=== PATIENT | female | born 1960 | race Caucasian/White ===

== ENCOUNTER → 2020-03-05 11:46 | Outpatient (CLI) | payer OTHER, MEDICAID, SELFPAY ==
--- NOTE | 2020-03-05 11:52 | DI.US.S_ITS ---
PROCEDURE: US ABDOMEN COMPLETE INDICATIONS: ABNORMAL FINDINGS BLOOD CHEMISTRY/DYSPHAGIA TECHNIQUE: Real-time scanning was performed of the abdominal and retroperitoneal organs, with image documentation. COMPARISON: None. FINDINGS: Liver: Liver is diffusely increased in echogenicity. No focal hepatic abnormalities identified. Normal hepatic size. Gallbladder: No gallstones identified. Normal gallbladder wall. No pericholecystic fluid. Negative sonographic Tapia sign. Biliary ducts: Intrahepatic bile ducts are non-dilated. Extrahepatic bile duct caliber measures 3.7 mm. Normal is 6-7 mm or less in diameter, or 10 mm or less post-cholecystectomy. Pancreas: Visualized portions of the pancreas are sonographically normal. Spleen: Spleen is normal in size and homogeneous in echotexture. Kidneys: Kidneys are normal in size and echotexture. Right kidney measures 11.4 cm long; left kidney measures 10.9 cm long. No hydronephrosis or nephrolithiasis. No solid masses. Aorta: Visualized aorta is normal in caliber at less than 3 cm. Iliacs: Proximal common iliac arteries are normal in caliber at less than 2.5 cm. IVC: Intrahepatic inferior vena cava is patent. Miscellaneous: No free abdominal fluid. IMPRESSION: Increased hepatic echogenicity noted possibly related to hepatic steatosis but other sources of hepatocellular disease cannot be excluded. Recommend clinical correlation. Dictated by: Tony SURESH Interpreted: Lisa Bruce MD on 03/05/2020 at 13:00 Transcribed by: SABAS on 03/05/2020 at 14:48 Approved by: Lisa Bruce M.D. on 03/05/2020 at 15:05
--- NOTE | 2020-03-05 11:53 | DI.RAD.S_ITS ---
PROCEDURE: FL BARIUM SWALLOW INDICATIONS: abnormal findings of blood chemistry Dysphagia COMPARISON: None. FINDINGS: Function: There is normal esophageal peristalsis. There was [id number] episodic elicited gastroesophageal reflux. Morphology: Air-contrast images demonstrate normal mucosal morphology. Single contrast views show no esophageal strictures, extrinsic mass effects, or diverticula. There is a small sliding hiatal hernia at the gastroesophageal junction. Limited images of the stomach demonstrate normal appearance. IMPRESSION: Ktia-[id number] episodic gastroesophageal reflux was elicited. Dictated by: Filemon Delgado M.D. on 03/05/2020 at 14:18 Approved by: Filemon Delgado M.D. on 03/05/2020 at 14:19
== END ==
PROVIDERS: PCP Family Medicine; Referring Provider Family Medicine; Visit Provider Family Medicine
DX: R13.10 Dysphagia, unspecified (principal); R79.89 Other specified abnormal findings of blood chemistry; K21.9 Gastro-esophageal reflux disease without esophagitis; K44.9 Diaphragmatic hernia without obstruction or gangrene
CPT/HCPCS: 74220; 76700

== ENCOUNTER 2020-09-09 13:23 | Emergency (ER) | payer OTHER, MEDICAID, SELFPAY ==
[2020-09-09] VITALS (7 sets, daily range): BP systolic 131–169; BP diastolic 66–74; PULSE 86–111; RESP 19–24; TEMP 36.9; O2SAT 96–100; BMI 28.7
--- NOTE | 2020-09-09 13:46 | DI.CT.S_ITS ---
PROCEDURE: CT HEAD/BRAIN WO CON INDICATIONS: dizzy and BARRY TECHNIQUE: Noncontrast 4.5 mm thick angled axial sections acquired from the foramen magnum to the vertex, with coronal and sagittal reformats. For radiation dose reduction, the following was used: automated exposure control, adjustment of mA and/or kV according to patient size. COMPARISON: None. FINDINGS: Image quality: Excellent. CSF spaces: Basal cisterns are patent. No extra-axial fluid collections. The ventricles are symmetric in size and shape. Brain: No intracranial bleeds or masses. There is cerebral volume loss for age, with resultant ventricular and sulcal prominence. There are periventricular and deep white matter chronic small vessel ischemic changes. There is intracranial internal carotid artery atherosclerosis. Skull and face: Calvarium and visualized facial bones appear intact, without suspicious lesions. Sinuses: Visualized sinuses and mastoids are clear. IMPRESSION: No acute intracranial process. Dictated by: Leonard Foote M.D. on 09/09/2020 at 13:58 Approved by: Leonard Foote M.D. on 09/09/2020 at 14:01
[2020-09-09 14:05] LABS: Prothrombin Time 11.3 SECONDS (10.1-12.7)
[2020-09-09 14:08] LABS: PTT Partial Thromboplastin Tim 32 SECONDS (26.4-36.2)
[2020-09-09 14:10] LABS: Alanine Aminotransferase 26 IU/L (<35); Albumin 4.3 g/dL (3.5-5.0); Albumin Globulin Ratio 1.4 (1.0-2.8); Alkaline Phosphatase 66 U/L (38-126); Aspartate Aminotransferase 29 IU/L (14-36); BUN Creatinine Ratio 21.3 (6-22); Bilirubin Total 0.4 mg/dL (0.2-1.3); Blood Urea Nitrogen 13 mg/dL (7-17); Calcium 9.9 mg/dL (8.4-10.2); Carbon Dioxide 29 mmol/L (22-32); Chloride 105 mmol/L (98-107); Creatine Kinase 39 U/L (30-135); Estimated Glomerular Filt Rate > 60.0 mL/min (>60); Glucose 181 mg/dL (70-100); HEMOLYSIS < 15 (0-50); Potassium 4.2 mmol/L (3.4-5.1); Sodium 140 mmol/L (137-145); Total Protein 7.3 g/dL (6.3-8.2)
--- NOTE | 2020-09-09 14:11 | ED.HA ---
HPI - Headache General Chief Complaint: Headache Stated Complaint: numbness/tingling all over, headache x 2 day Time Seen by Provider: 09/09/20 13:52 Source: patient Mode of arrival: Ambulatory Limitations: no limitations History of Present Illness HPI Narrative: This is a 60-year-old female comes emergency department with complaint of numbness and tingling that she describes typically on the right cheek, teeth and face. She states also sometimes in her right arm is also sometimes in her left arm or consistently on her right. She also sometimes gets it in both lower extremities. She describes as being bilateral. Patient has recently been having episodes of feeling lightheaded but with no syncope. She has not had any speech issues. She denies any current shortness of breath chest pain today she has some shortness of breath with exertion when carrying her groceries up the steps. She denies any current nausea or vomiting. No major issues with bowel movements or urination today. She has not appreciated any weakness or difficulty with movement. She has not had complete loss of sensation. She denies any issues with speech. She also notes she has been having some headaches which have been more persistent and over the last several days she has had ringing in her ears which has been intermittent in the past but has become more constant over the last day and more intense. She presents today because she has had increasing frequency, intensity and persistence of symptoms. Patient states she was positive for COVID in December, she tested negative afterwards and she noticed her symptoms starting on March or April. She does have diabetes, she is on metformin and glipizide as well as famotidine, Wellbutrin and ibesartan. Patient has a history of hiatal hernia which she states causes her to eat smaller meals which has prompted her to lose weight and her glucose has been more well controlled over the last 2 months typically her fastings have been 108-150 and prior they were closer to 200. She had a 1985 denies any other surgeries. She quit tobacco in the past. More rare alcohol, no illicit. She follows with Dr. Kern in [place], [place]. Related Data Allergies Allergy/AdvReac Type Severity Reaction Status Date / Time No Known Drug Allergies Allergy Verified 09/09/20 13:36 Review of Systems Review of Systems ROS Unobtainable: All systems reviewed & are unremarkable except as noted in HPI and below Patient History Medical History (Updated 09/09/20 @ 14:45 by Pippa Tay DO) Diabetes GERD (gastroesophageal reflux disease) Hiatal hernia Hypertension Surgical History (Updated 09/09/20 @ 14:39 by Pippa Tay DO) History of Social History Smoking Status: Former smoker Smoking Status: Former smoker alcohol intake frequency: holidays/special occasions only Substance Use Type: does not use Exam Narrative Exam Narrative: GEN: well nourished, well appearing female, alert and oriented x 3, patient appears to be in mild distress. HEENT: Atraumatic, pupils are equal round reactive to light, extraocular movements are intact, nares are clear, TMs are clear with no fluid, TMs are retracted but with good light reflex bilaterally, there is no conjunctival pallor. Throat is clear without any exudates, erythema, tonsillar enlargement or uvular deviation, no facial droop. HEART: Regular rate and rhythm without murmur, clicks, rubs. Pulses are equal in upper and lower extremities LUNGS:Lungs clear to auscultation, no wheezes, rales, crackles, chest moves symmetrically ABD:bowel sounds normal, soft, non-tender, no guarding, rebound, rigidity, no masses noted, no hepatosplenomegaly :No CVA tenderness MSCL: Non-tender, no muscle atrophy, muscles strength 5/5 upper and lower extremities, full range of motion, normal gait NEURO:CN 2-12 intact, sensation normal, reflexes 2/4 upper and lower extremities. finger nose finger test normal, heel hahn test normal SKIN: Rash, erythema or other skin changes noted. Initial Vital Signs Initial Vital Signs: Vital Signs Temperature 98.4 F 09/09/20 13:30 Pulse Rate 111 H 09/09/20 13:30 Respiratory Rate 24 09/09/20 13:30 Blood Pressure 169/71 H 09/09/20 13:30 Pulse Oximetry 100 09/09/20 13:30 Scores GCS [place] coma scale eye opening: Spontaneous [place] coma scale verbal response: Orientated [place] coma scale motor response: Obey commands Yudy coma scale total score: 15 NIH Stroke Scale Level of Conciousness: Alert, keenly responsive Ask month/age: Answers both questions correctly. Open/close eyes, close hand: Performs both tasks correctly Best gaze horizontal: Normal Visual [place]: No visual loss Facial palsy: Normal symetrical movement Left arm drift: No drift for full 10 sec Right arm drift: No drift for full 10 sec Left leg drift: No drift for full 5 sec Right leg drift: No drift for full 5 sec Limb ataxia: Absent Sensory on face/arms/legs: Normal, no sensory loss Best language: No aphasia, normal Dysarthria: Normal Extinction or inattention: No abnormality Total NIH Stroke scale score: 0 Course Orders Ordered: ED Orders 09/09/20 13:40 EKG-12 Lead Stat 09/09/20 13:43 Complete Blood Count AUTO DIFF Stat Comprehensive Metabolic Panel Stat Partial Thromboplastin Time Stat Prothrombin Time INR Stat Troponin & CK Cardiac Panel Stat 09/09/20 13:46 CT head/brain wo con Stat 09/09/20 14:42 Urine Culture Stat Urine Microscopic Stat Vital Signs Vital signs: Vital Signs - 8 hr 09/09/20 13:30 09/09/20 13:31 09/09/20 13:33 Temperature 98.4 F Pulse Rate 111 H 98 H Respiratory Rate 24 Blood Pressure 169/71 H 169/71 H Pulse Oximetry 100 97 99 09/09/20 13:55 09/09/20 14:36 09/09/20 14:37 Temperature Pulse Rate 89 91 H 86 Respiratory Rate 20 19 Blood Pressure 158/74 H 133/69 Pulse Oximetry 99 96 98 09/09/20 15:00 Temperature Pulse Rate 96 H Respiratory Rate Blood Pressure 131/66 Pulse Oximetry 97 MDM - Headache Lab Data Result diagrams: 09/09/20 13:43 09/09/20 13:43 Labs: Lab Results 09/09/20 09/09/20 09/09/20 Range/Units 13:43 13:43 13:43 WBC 9.4 (4.5-11.0) X10^3/uL RBC 4.79 (4.0-5.2) X10^6/uL Hgb 13.0 (12.0-16.0) g/dL Hct 40.2 (36-46) % MCV 83.9 (80-100) fL MCH 27.1 (26-34) PG MCHC 32.3 (30-36) % RDW 15.3 H (11.6-14.8) % Plt Count 298 (150-400) X10^3/uL Neut % (Auto) 69.6 (50-75) % Lymph % (Auto) 23.1 L (25-40) % Tate % (Auto) 5.0 (3-14) % Eos % (Auto) 1.8 L (2-4) % Baso % (Auto) 0.5 (0-2) % Neut # (Auto) 6600 (1347-1701) /uL Lymph # (Auto) 2200 (5565-7365) /uL Tate # (Auto) 500 (0-900) /uL Eos # (Auto) 200 (0-450) /uL Baso # (Auto) 0 (0-100) /uL PT 11.3 (10.1-12.7) SECONDS INR 1.0 (0.9-1.3) APTT 32 (26.4-36.2) SECONDS Sodium 140 (137-145) mmol/L Potassium 4.2 (3.4-5.1) mmol/L Chloride 105 (98-107) mmol/L Carbon Dioxide 29 (22-32) mmol/L BUN 13 (7-17) mg/dL Creatinine 0.61 (0.52-1.04) mg/dL Estimated GFR > 60.0 (>60) mL/min BUN/Creatinine Ratio 21.3 (6-22) Glucose 181 H (70-100) mg/dL Calcium 9.9 (8.4-10.2) mg/dL Total Bilirubin 0.4 (0.2-1.3) mg/dL AST 29 (14-36) IU/L ALT 26 (<35) IU/L Alkaline Phosphatase 66 (38-126) U/L Total Creatine Kinase 39 (30-135) U/L CK-MB (CK-2) TNP CK-MB (CK-2) Rel Index TNP Troponin I < 0.012 (0.01-0.034) ng/mL Total Protein 7.3 (6.3-8.2) g/dL Albumin 4.3 (3.5-5.0) g/dL Globulin 3.0 (1.7-4.1) g/dL Albumin/Globulin Ratio 1.4 (1.0-2.8) Urine RBC (0-5/HPF) Urine WBC (0-5/HPF) Urine Bacteria (None) Ur Culture Indicated? 09/09/20 Range/Units 14:42 WBC (4.5-11.0) X10^3/uL RBC (4.0-5.2) X10^6/uL Hgb (12.0-16.0) g/dL Hct (36-46) % MCV (80-100) fL MCH (26-34) PG MCHC (30-36) % RDW (11.6-14.8) % Plt Count (150-400) X10^3/uL Neut % (Auto) (50-75) % Lymph % (Auto) (25-40) % Tate % (Auto) (3-14) % Eos % (Auto) (2-4) % Baso % (Auto) (0-2) % Neut # (Auto) (9712-2214) /uL Lymph # (Auto) (4461-3004) /uL Tate # (Auto) (0-900) /uL Eos # (Auto) (0-450) /uL Baso # (Auto) (0-100) /uL PT (10.1-12.7) SECONDS INR (0.9-1.3) APTT (26.4-36.2) SECONDS Sodium (137-145) mmol/L Potassium (3.4-5.1) mmol/L Chloride (98-107) mmol/L Carbon Dioxide (22-32) mmol/L BUN (7-17) mg/dL Creatinine (0.52-1.04) mg/dL Estimated GFR (>60) mL/min BUN/Creatinine Ratio (6-22) Glucose (70-100) mg/dL Calcium (8.4-10.2) mg/dL Total Bilirubin (0.2-1.3) mg/dL AST (14-36) IU/L ALT (<35) IU/L Alkaline Phosphatase (38-126) U/L Total Creatine Kinase (30-135) U/L CK-MB (CK-2) CK-MB (CK-2) Rel Index Troponin I (0.01-0.034) ng/mL Total Protein (6.3-8.2) g/dL Albumin (3.5-5.0) g/dL Globulin (1.7-4.1) g/dL Albumin/Globulin Ratio (1.0-2.8) Urine RBC 1-5/hpf (0-5/HPF) Urine WBC 1-5/hpf (0-5/HPF) Urine Bacteria None seen (None) Ur Culture Indicated? Specimen cultured Urine Dip Bedside Urine Glucose Negative Bedside Urine Bilirubin - Negative Bedside Urine Ketone - Negative Urine Specific [place] 1.025 Bedside Urine Occult Blood - Negative Bedside Urine pH 6 Bedside Urine Protein - Negative Bedside Urine Urobilinogen - Negative Bedside Urine Nitrite - Negative Bedside Urine Leukocytes + [address] scan - head: Radiologist's Impression: [address] [id number] Scan ReportSigned Patient: Marilyn Morgan LMR#: [id number]: 1960cct:[id number]/Sex: 60 / FDate of Service: 09/09/20Loc: EDAccession Number: [id number] Procedure: CT head/brain wo con Ordering Provider: Pippa Tay D.O. PROCEDURE: CT HEAD/BRAIN WO CON INDICATIONS: dizzy and BARRY TECHNIQUE: Noncontrast 4.5 mm thick angled axial sections acquired from the foramen magnum to the vertex, with coronal and sagittal reformats. For radiation dose reduction, the following was used: automated exposure control, adjustment of mA and/or kV according to patient size. COMPARISON: None. FINDINGS: Image quality: Excellent. CSF spaces: Basal cisterns are patent. No extra-axial fluid collections. The ventricles are symmetric in size and shape. Brain: No intracranial bleeds or masses. There is cerebral volume loss for age, with resultant ventricular and sulcal prominence. There are periventricular and deep white matter chronic small vessel ischemic changes. There is intracranial internal carotid artery atherosclerosis. Skull and face: Calvarium and visualized facial bones appear intact, without suspicious lesions. Sinuses: Visualized sinuses and mastoids are clear. IMPRESSION: No acute intracranial process. Dictated by: Leonard Foote M.D. on 09/09/2020 at 13:58 Approved by: Leonard Foote M.D. on 09/09/2020 at 14:01 ECG Data Attestation: I personally reviewed and interpreted this ECG as follows: Prior ECG tracings: not available for review Interpretation: Sinus rhythm rate of 93, P are 143, QRS 88 QTC 368. MDM Narrative Medical decision making narrative: This is a 60-year-old female who arrives with complaint of longstanding issues that have increased with frequency, intensity of persistence. Constellation symptoms including tinnitus, headaches, paresthesias sometimes of the right face, bilateral upper extremities and lower extremities. Patient is a known diabetic she has not noted that her symptoms are more consistent when her glucose is high. She has not had any other acute neurologic changes that make me suspicious for TIA or CVAs. She states she does have a history of anxiety but this has been significantly improved from the past. She does denote that she has very fragmented sleep secondary to dogs as well as [facility] [place] [facility], she states the engines for the jets are very loud and often disturb her sleep and she typically does not sleep more than 1-2 hours continuously. Patient's neurologic exam is normal, her head CT, EKG and labs show no acute findings would explain all of her symptoms today. Her glucose is elevated at 181. She did have covid in December but has been negative since then. Unclear if this is contributing to symptoms but recommended to follow up with pcp for further evaluation. Discharge Plan Departure Patient Disposition: Home Clinical Impression: Paresthesias, Tinnitus, Headache Instructions: DI for Numbness/Tingling Activity Restrictions/Additional Instructions: Follow-up with your primary care physician to discuss your concerns today. We do not have a clear cause found for all of your symptoms today. Her paresthesias may be related to her diabetes as some individuals developed neuropathy although your facial paresthesias are less likely to be a cause of this. Some of her symptoms may also be related to your fragmented sleep as well as chronic exposure to high levels of sound. Continue home medications as prescribed. Return to the ER for fevers, severe headaches, sudden vision changes, loss of sensation, inability use extremity, passing out, difficulty with speech, new chest pain shortness of breath, persistent vomiting or other new or concerning symptoms. Referrals: Adán Kern DO [Primary Care Provider] -
[2020-09-09 14:20] LABS: Troponin I < 0.012 ng/mL (0.01-0.034)
[2020-09-09 14:45] LABS: Bacteria Urine None Seen
[2020-09-09 14:58] LABS: Add Manual Diff / Slide Review NO; Basophils Absolute Auto 0 /uL (0-100); Basophils Percent Auto 0.5 % (0-2); Eosinophils Absolute Auto 200 /uL (0-450); Eosinophils Percent Auto 1.8 % (2-4); Hematocrit 40.2 % (36-46); Lymphocytes Absolute Auto 2200 /uL (1100-4500); Lymphocytes Percent Auto 23.1 % (25-40); Mean Corpuscular HGB Conc 32.3 % (30-36); Mean Corpuscular Hemoglobin 27.1 PG (26-34); Mean Corpuscular Volume 83.9 fL (80-100); Monocytes Absolute Auto 500 /uL (0-900); Neutrophils Absolute Auto 6600 /uL (1500-7000); Neutrophils Percent Auto 69.6 % (50-75); Platelet Count 298 X10^3/uL (150-400); Red Blood Cell Count 4.79 X10^6/uL (4.0-5.2); Red Cell Distribution Width 15.3 % (11.6-14.8); White Blood Cell Count 9.4 X10^3/uL (4.5-11.0)
[2020-09-09 15:01] LABS: Culture Indicated Urine Specimen Cultured; RBC Urine 1-5/HPF (0-5/HPF); WBC Urine 1-5/HPF (0-5/HPF)
== END 2020-09-09 15:28 | disposition home or self-care (01) ==
PROVIDERS: Emergency Provider Emergency Medicine; PCP Family Medicine
DX: R20.2 Paresthesia of skin (principal); H93.19 Tinnitus, unspecified ear; R51.9 Headache, unspecified; E11.9 Type 2 diabetes mellitus without complications; I10 Essential (primary) hypertension; R42 Dizziness and giddiness
CPT/HCPCS: 36415; 70450; 80053; 81003; 81015; 82550; 84484; 85025; 85610; 85730; 87086; 93005; 99281; 99284

== ENCOUNTER 2021-03-05 15:27 | Emergency (ER) | payer OTHER, MEDICAID, SELFPAY ==
[2021-03-05 15:32] VITALS: BP 136/73; PULSE 98; RESP 20; TEMP 36.9; O2SAT 99; BMI 30.4
== END 2021-03-05 17:26 | disposition left against medical advice (07) ==
PROVIDERS: Emergency Provider Emergency Medicine; PCP Family Medicine
CPT/HCPCS: 99281

== ENCOUNTER → 2021-03-23 14:22 | Outpatient (CLI) | payer OTHER, MEDICAID, SELFPAY ==
[2021-03-23 14:53] LABS: Add Manual Diff / Slide Review NO; Basophils Absolute Auto 100 /uL (0-100); Basophils Percent Auto 0.6 % (0-2); Eosinophils Absolute Auto 200 /uL (0-450); Eosinophils Percent Auto 2.1 % (2-4); Hematocrit 36.5 % (36-46); Hemoglobin 12.2 g/dL (12.0-16.0); Lymphocytes Absolute Auto 3100 /uL (1100-4500); Lymphocytes Percent Auto 29.8 % (25-40); Mean Corpuscular HGB Conc 33.5 % (30-36); Mean Corpuscular Hemoglobin 27.7 PG (26-34); Mean Corpuscular Volume 82.7 fL (80-100); Monocytes Absolute Auto 600 /uL (0-900); Monocytes Percent Auto 5.9 % (3-14); Neutrophils Absolute Auto 6400 /uL (1500-7000); Neutrophils Percent Auto 61.6 % (50-75); Platelet Count 276 X10^3/uL (150-400); Red Blood Cell Count 4.42 X10^6/uL (4.0-5.2); Red Cell Distribution Width 16.5 % (11.6-14.8); White Blood Cell Count 10.3 X10^3/uL (4.5-11.0)
[2021-03-23 15:49] LABS: Alanine Aminotransferase 21 IU/L (<35); Albumin 3.9 g/dL (3.5-5.0); Albumin Globulin Ratio 1.3 (1.0-2.8); Alkaline Phosphatase 67 U/L (38-126); Aspartate Aminotransferase 23 IU/L (14-36); Bilirubin Total 0.4 mg/dL (0.2-1.3); Blood Urea Nitrogen 13 mg/dL (7-17); Calcium 9.8 mg/dL (8.4-10.2); Carbon Dioxide 26 mmol/L (22-32); Chloride 105 mmol/L (98-107); Estimated Glomerular Filt Rate > 60.0 mL/min (>60); Globulin 2.9 g/dL (1.7-4.1); Glucose 189 mg/dL (70-100); HEMOLYSIS < 15 (0-50); Potassium 4.4 mmol/L (3.4-5.1); Sodium 140 mmol/L (137-145); Total Protein 6.8 g/dL (6.3-8.2)
[2021-03-23 16:19] LABS: TSH w/ Reflex to FT4 0.89 uIU/mL (0.47-4.68)
[2021-03-24 10:01] LABS: Adenovirus F 40/41 Not Detected (Not Detect); Astrovirus Not Detected (Not Detect); Campylobacter Not Detected (Not Detect); Clostridium difficile toxin AB Detected (Not Detect); Cryptosporidium Not Detected (Not Detect); Cyclospora cayetanensis Not Detected (Not Detect); Entamoeba histolytica Not Detected (Not Detect); Enteroaggregative E.coli Not Detected (Not Detect); Enteropathogenic E.coli Not Detected (Not Detect); Enterotoxigenic E.coli It/st Not Detected (Not Detect); Giardia lamblia Not Detected (Not Detect); Norovirus GI/GII Not Detected (Not Detect); Plesiomonsa shigelloides Not Detected (Not Detect); Rotavirus A Not Detected (Not Detect); Salmonella Not Detected (Not Detect); Sapovirus Not Detected (Not Detect); Shiga-like toxin-prod E.coli Not Detected (Not Detect); Shigella/Enteroinvasive E.coli Not Detected (Not Detect); Vibrio Not Detected (Not Detect); Vibrio cholerae Not Detected (Not Detect); Yersinia enterocolitica Not Detected (Not Detect)
[2021-03-25 13:10] LABS: Deamidated Gliadin Ab IgA 3 units (0-19); Deamidated Gliadin Ab IgG 1 units (0-19); Immunoglobulin A,Qn 422 mg/dL (87-352)
[2021-03-25 13:11] LABS: t-Transglutaminase IgA <2 U/mL (0-3)
[2021-03-26 14:31] LABS: C difficie Toxins A and B, EIA Negative (Negative)
[2021-03-30 15:08] LABS: DQ8 (DQA1 03XX, DQB1 0302) Negative (.)
== END ==
PROVIDERS: PCP Family Medicine; Referring Provider Physician Assistant; Visit Provider Physician Assistant
DX: Z01.812 Encounter for preprocedural laboratory examination (principal); R19.7 Diarrhea, unspecified
CPT/HCPCS: 36415; 80053; 81377; 82784; 83516; 84443; 85025; 87324; 87507